=== PATIENT | female | born 1960 | race Caucasian/White ===

== ENCOUNTER 2024-10-10 10:08 | Emergency (ER) | payer MEDICARE ==
[~2024-10-10] VITALS: Ht 167.6 cm; Wt 55.0 kg
[2024-10-10] MEDS ORDERED: ELAVIL25 M1 PO (10:30)
[2024-10-10] MEDS ORDERED: KETOROLAC TROMETHAMINE 30 MG/ML SDV IM ONE (12:00)
[2024-10-10] MEDS ORDERED: NAPROXEN500 MG PO (12:04)
[2024-10-10 12:27] VITALS: BP 135/74
== END 2024-10-10 12:37 | disposition home or self-care (01) ==
LOC: ED 10:08
DX: S93.402A Sprain of unspecified ligament of left ankle, initial encounter (principal); X50.0XXA Overexertion from strenuous movement or load, initial encounter; Y93.K1 Activity, walking an animal; Y92.410 Unspecified street and highway as the place of occurrence of the external cause

== ENCOUNTER 2024-10-28 11:01 | Emergency (ER) | payer MEDICARE ==
[~2024-10-28] VITALS: Ht 167.6 cm; Wt 57.0 kg
[~2024-10-28 11:01] MED LIST: ELAVIL25 M1 PO; NAPROXEN500 MG PO
[2024-10-28] MEDS ORDERED: WALKER/ADULT/FOLDING XX (13:19)
[2024-10-28 13:48] VITALS: BP 149/67
== END 2024-10-28 13:39 | disposition home or self-care (01) ==
LOC: ED 11:01
DX: M25.572 Pain in left ankle and joints of left foot (principal)

== ENCOUNTER 2024-11-18 11:12 | Emergency (ER) | payer MEDICARE ==
[~2024-11-18 11:12] MED LIST changes: +WALKER/ADULT/FOLDING XX
[2024-11-19] MEDS ORDERED: AMOX/K CLAV875 M1 PO (12:47)
== END 2024-11-18 11:55 | disposition left against medical advice (07) ==
LOC: ED 11:12 → LWOBS 11:55
DX: Z53.21 Procedure and treatment not carried out due to patient leaving prior to being seen by health care provider (principal)

== ENCOUNTER 2024-11-19 09:28 | Emergency (ER) | payer MEDICARE ==
[2024-11-19] VITALS (13 sets, daily range): BP systolic 124–160; BP diastolic 69–89
[~2024-11-19] VITALS: Ht 167.6 cm; Wt 58.0 kg
[2024-11-19 10:21] LABS: BASO% 0.4 % (0-3); HEMATOCRIT 39.2 % (37.0-47.0); IMMATURE GRANULOCYTES 0.2 % (0.0-5.0); LYMPH% 26.2 % (15-41); MEAN CELL VOLUME 97.3 fL CALC (80.0-100.0); MEAN CORPUSCULAR HGB 32.3 pG CALC (26.0-32.0); MEAN CORPUSCULAR HGB CONC 33.2 g/dL CAL (32.0-36.0); MONO% 8.4 % (2-13); NEUT# 2.86 thou/uL (2.00-7.15); NEUT% 62.8 % (42-76); RED BLOOD COUNT 4.03 mill/uL (4.20-5.60); RED CELL DISTRI WIDTH 13.1 % (11.5-15.5)
[2024-11-19 10:40] LABS: ALBUMIN 4.4 g/dL (3.2-5.0); BILIRUBIN, TOTAL 0.6 mg/dL (0.02-1.3); CREATININE 0.8 mg/dL (0.5-1.0); POTASSIUM 4.3 mmol/l (3.5-5.1); TOTAL PROTEIN 7.2 g/dL (6.3-8.2)
[2024-11-19] MEDS ORDERED: AMOX/K CLAV875 M1 PO (12:47)
== END 2024-11-19 13:01 | disposition home or self-care (01) ==
LOC: ED 09:28
PROVIDERS: Family Medicine
DX: J90 Pleural effusion, not elsewhere classified (principal); R07.81 Pleurodynia
CPT/HCPCS: Q9967